=== PATIENT | female | born 1970 | race African-American/Black ===

== ENCOUNTER 2018-12-17 20:03 | Inpatient (IN) | payer OTHER ==
[~2018-12-17] VITALS: Ht 165.1 cm; Wt 77.1 kg
[2018-12-17 20:27] LABS: BASO % 0 % (0-3); EOS # 0.1 x10^3/uL (0.0-0.7); EOS % 2 % (0-3); HEMATOCRIT 45.7 % (36.0-47.0); HEMOGLOBIN 14.9 g/dL (12.0-15.5); LYMPH % 18 % (24-48); MEAN CORPUSCULAR HEMOGLOBIN 27 pg (25-35); MEAN CORPUSCULAR HGB CONC 33 g/dL (31-37); MEAN CORPUSCULAR VOLUME 84 fL (79-100); MONO # 0.4 x10^3/uL (0.0-1.1); MONO % 7 % (0-9); NEUT # 3.8 x10^3uL (1.8-7.7); NEUT % 72 % (31-73); PLATELET COUNT 260 x10^3/uL (140-400); RED BLOOD COUNT 5.43 x10^6/uL (3.50-5.40); RED CELL DISTRIBUTION WIDTH 14.8 % (11.5-14.5); WHITE BLOOD COUNT 5.3 x10^3/uL (4.0-11.0)
[2018-12-17] MEDS ORDERED: methylPREDNISolone SOD SUCC PF 125 MG/2 ML VIAL. IV ONE (20:30)
[2018-12-17] MEDS ORDERED: IV NORMAL SALINE 1000ML BAG 1,000 ML IV ONE (20:30)
--- NOTE | 2018-12-17 20:30 | PHYS DOC ---
Past Medical History Past Medical History: Asthma Past Surgical History: Hysterectomy Alcohol Use: Occasionally Drug Use: None Adult General Chief Complaint Chief Complaint: DYSPNEA/RESPIRATOY DISTRESS HPI HPI Patient is a 48 year old -Spanish female with history of asthma who presents with acute asthma exacerbation. Is began earlier today. Patient reports difficulty breathing, wheezing despite breathing treatments at home. On EMS arrival, patient's tachypnea, with audible wheezes, but able to speak in full sentences. O2 saturation was 96% on room air. To hand-held breathing treatments given at scene and patient placed on CPAP mass. Patient with diminished breath sounds with inspiratory and expiratory wheezes on ED arrival. Reports nasal congestion, and nonproductive cough. Reports subjective fever and chills. Patient states she has had recent stomach flu the past 2-3 days and has had vomiting and diarrhea and not much sleep. Denies chest pain. No other acute symptoms or complaints. Patient has had past asthma exacerbations requiring intubation. [] Review of Systems Review of Systems ROS as per HPI All other systems were reviewed and found to be within normal limits, except as documented in this note. Allergies Allergies Allergies Coded Allergies Type Severity Reaction Last Updated Verified No Known Drug Allergies 02/12/14 No Physical Exam Physical Exam Constitutional: Well developed, well nourished, mild respiratory distress. [] HENT: Normocephalic, atraumatic, bilateral external ears normal, oropharynx moist, nose normal. [] Eyes: PERRLA, EOMI, conjunctiva normal, no discharge. [] Neck: Normal range of motion, no tenderness, supple, no stridor. [] Cardiovascular: Tachycardic.[] Lungs & Thorax: Respirations labored, tachypnea, respiratory rate upper 20s, inspiratory and expiratory wheezes, diminished breath sounds bilaterally. Speaks in complete sentences. [] Abdomen: Bowel sounds normal, soft, no tenderness. [] Skin: Warm, dry, no erythema, no rash. [] Back: No tenderness. [] Extremities: No tenderness, no cyanosis. [] Neurologic: Alert and oriented X 3, normal motor function, normal sensory function, no focal deficits noted. [] Psychologic: Affect normal, judgement normal, mood normal. [] EKG EKG [] Radiology/Procedures Radiology/Procedures [Chest x-ray: No acute cardiopulmonary disease per radiology report.] Course & Med Decision Making Course & Med Decision Making Pertinent Labs and Imaging studies reviewed. (See chart for details) [Breathing treatment, steroids given. Will defer asthma exacerbation.] Dragon Disclaimer Dragon Disclaimer This electronic medical record was generated, in whole or in part, using a voice recognition dictation system. Departure Departure Impression: Primary Impression: Acute asthma exacerbation Disposition: ADMITTED INPATIENT Admitting Physician: Haleigh Pate Condition: DINH BACON DO Dec 17, 2018 20:30
[2018-12-17 20:33] LABS: BASE EXCESS ABG -1 mmol/L (-3-3); HCO3 ABG 24 mmol/L (21-28); PCO2 ABG 42 mmHg (35-46); PO2 ABG 87 mmHg (75-108); SAT O2 ABG 96 % (92-99)
[2018-12-17 20:35] LABS: CALCIUM 8.6 mg/dL (8.5-10.1); GFR 72.2; POTASSIUM 3.1 mmol/L (3.5-5.1)
[2018-12-17 20:41] LABS: ALBUMIN 3.3 g/dL (3.4-5.0); ALBUMIN/GLOBULIN RATIO 0.7 (1.0-1.7); TOTAL BILIRUBIN 0.2 mg/dL (0.2-1.0); TOTAL PROTEIN 8.1 g/dL (6.4-8.2)
[2018-12-17 20:42] LABS: PREG TEST PT QUAL NEGATIVE (NEG)
[2018-12-17 20:45] VITALS: BP 127/81
[2018-12-17 20:46] LABS: FIO2 ABG 24
[2018-12-17] MEDS ORDERED: ALBUTEROL SULFATE 2.5 MG/3 ML NEBU. NEB PRN (21:00)
[2018-12-17] MEDS ORDERED: ONDANSETRON PF 4 MG/2 ML VIAL. IV PRN (21:00)
--- NOTE | 2018-12-17 21:36 | RAD ---
CHEST AP ONLY History: Shortness of air Comparison: February 12, 2014 Findings: Single view of the chest is submitted. There is no lobar consolidation, pleural fluid, pneumothorax. Heart size is stable, within normal limits. Impression: 1. There is no radiographic evidence of acute cardiopulmonary disease. Electronically signed by: Mike Fitzgerald MD (12/17/2018 9:33 PM) [facility]
--- NOTE | 2018-12-17 22:12 | HP ---
ADMIT DATE: 12/17/2018 CHIEF COMPLAINT: Wheezing. HISTORY OF PRESENT ILLNESS: The patient is a pleasant, relatively healthy -[place] female, who presented to the ER with wheezing. She states she has had asthma off and on for years. She states her left lung seems to wheeze more than the right, describes as agonizing. She tried to take some home meds, but that did not work. Worse with moving, better with sitting still. I discussed the case with ER physician. We are going to admit the patient, give her IV steroids, breathing treatments and consult Pulmonary. PAST MEDICAL HISTORY: Asthma. ALLERGIES: None. FAMILY HISTORY: Asthma. 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 She does not drink, smoke or take drugs. She moved here from [place] 12 years ago. MEDICATIONS: Reviewed. Please refer to the MRAD. REVIEW OF SYSTEMS: GENERAL: No history of weight change, weakness or fevers. SKIN: No bruising, hair changes or rashes. EYES: No blurred, double or loss of vision. NOSE AND THROAT: No history of nosebleeds, hoarseness or sore throat. HEART: No history of palpitations, chest pain or shortness of breath on exertion. LUNGS: She complains of shortness of breath and wheezing. GASTROINTESTINAL: Denies changes in appetite, nausea, vomiting, diarrhea or constipation. GENITOURINARY: No history of frequency, urgency, hesitancy or nocturia. NEUROLOGIC: Denies history of numbness, tingling, tremor or weakness. PSYCHIATRIC: No history of panic, anxiety or depression. ENDOCRINE: No history of heat or cold intolerance, polyuria or polydipsia. EXTREMITIES: Denies muscle weakness, joint pain, pain on walking or stiffness. PHYSICAL EXAMINATION: VITAL SIGNS: Temperature afebrile, pulse 98, respirations 18, blood pressure 132/91. GENERAL: She is alert, cooperative, weak, complaining of wheezing. HEART: Normal S1, S2. LUNGS: Diffuse wheezing. ABDOMEN: Soft. EXTREMITIES: Trace edema. SKIN: No rash. ENDOCRINE: No thyromegaly. LYMPHATICS: No cervical nodes. HEMATOPOIETIC: No bruising. PSYCHIATRIC: She is depressed. LABORATORY DATA: Pending. ASSESSMENT AND PLAN: Asthma exacerbation. The patient has been admitted. We will consult Pulmonary. IV steroids, DuoNeb, oxygen, home meds, DVT prophylaxis. Full code. MARY ELLEN MCKENNA DO DR: Zackery JOB#: [id number] / [id number]
[2018-12-18] MEDS: IV NORMAL SALINE 1000ML BAG 1,000 ML IV SCH ×3 (00:10→12:42)
[2018-12-18] MEDS: methylPREDNISolone SOD SUCC PF 125 MG/2 ML VIAL. IV SCH ×2 (00:12→06:10)
[2018-12-18 03:35] VITALS: BP 121/69
[2018-12-18 04:42] LABS: BASO % 0 % (0-3); EOS % 0 % (0-3); HEMOGLOBIN 14.6 g/dL (12.0-15.5); LYMPH # 0.5 x10^3/uL (1.0-4.8); LYMPH % 14 % (24-48); MEAN CORPUSCULAR HEMOGLOBIN 27 pg (25-35); MEAN CORPUSCULAR HGB CONC 32 g/dL (31-37); MEAN CORPUSCULAR VOLUME 85 fL (79-100); MONO # 0.1 x10^3/uL (0.0-1.1); MONO % 2 % (0-9); NEUT # 2.8 x10^3uL (1.8-7.7); NEUT % 85 % (31-73); PLATELET COUNT 272 x10^3/uL (140-400); RED BLOOD COUNT 5.32 x10^6/uL (3.50-5.40); RED CELL DISTRIBUTION WIDTH 14.8 % (11.5-14.5); WHITE BLOOD COUNT 3.3 x10^3/uL (4.0-11.0)
[2018-12-18 05:07] LABS: ALBUMIN 3.1 g/dL (3.4-5.0); ALBUMIN/GLOBULIN RATIO 0.6 (1.0-1.7); CALCIUM 8.9 mg/dL (8.5-10.1); CREATININE 0.9 mg/dL (0.6-1.0); GFR 81.6; POTASSIUM 3.6 mmol/L (3.5-5.1); TOTAL BILIRUBIN 0.2 mg/dL (0.2-1.0); TOTAL PROTEIN 7.9 g/dL (6.4-8.2)
[2018-12-18 07:00] VITALS: BP 147/84
[2018-12-18] MEDS: IPRATRPIUM/ALBUTEROL 0.5/2.5MG 3 ML NEBU. NEB SCH ×3 (07:18→15:16)
[2018-12-18 11:30] VITALS: BP 125/81
[2018-12-18] MEDS ORDERED: IV NORMAL SALINE 1000ML BAG 1,000 ML IV ONE (12:00)
[2018-12-18] MEDS ORDERED: ACETAMINOPHEN 325 MG TABLET. PO PRN (12:00)
[2018-12-18] MEDS ORDERED: POTASSIUM CHLORIDE 20 MEQ TABLET.ER. PO ONE (12:30)
[2018-12-18] MEDS ORDERED: MONTELUKAST SODIUM 10 MG TABLET. PO SCH ×2 (12:30→21:00)
[2018-12-18 15:05] VITALS: BP 146/78
[2018-12-18] MEDS ORDERED: MONT10TA9 PO (15:52)
[2018-12-18] MEDS ORDERED: ALBU2.5V8 NEB (15:53)
[2018-12-18] MEDS ORDERED: BUDE10.22 IH (15:55)
--- NOTE | 2018-12-18 15:55 | PDOC3 ---
Discharge Summary Visit Information Date of Admission: Dec 17, 2018 Date of Discharge: Dec 18, 2018 Admitting Diagnosis: cough, dyspnea, Final Diagnosis acute bronchitis asthma headache Problems Medical Problems: (1) Acute asthma exacerbation Status: Acute Brief Hospital Course Allergies Allergies Coded Allergies Type Severity Reaction Last Updated Verified No Known Drug Allergies 02/12/14 No Vital Signs Vital Signs Date Time Temp Pulse Resp B/P (MAP) Pulse Ox O2 Delivery O2 Flow Rate FiO2 12/18/18 15:18 Room Air 12/18/18 11:30 98.5 73 18 125/81 (96) 95 98.5 12/17/18 21:40 2.0 Lab Results Laboratory Tests Test 12/17/18 20:09 12/17/18 20:18 12/18/18 03:15 O2 Saturation 96 % (92-99) Arterial Blood pH 7.37 (7.35-7.45) Arterial Blood pCO2 at Patient Temp 42 mmHg (35-46) Arterial Blood pO2 at Patient Temp 87 mmHg (75-108) Arterial Blood HCO3 24 mmol/L (21-28) Arterial Blood Base Excess -1 mmol/L (-3-3) FiO2 24 White Blood Count 5.3 x10^3/uL (4.0-11.0) 3.3 x10^3/uL (4.0-11.0) Red Blood Count 5.43 x10^6/uL (3.50-5.40) 5.32 x10^6/uL (3.50-5.40) Hemoglobin 14.9 g/dL (12.0-15.5) 14.6 g/dL (12.0-15.5) Hematocrit 45.7 % (36.0-47.0) 45.0 % (36.0-47.0) Mean Corpuscular Volume 84 fL (79-100) 85 fL (79-100) Mean Corpuscular Hemoglobin 27 pg (25-35) 27 pg (25-35) Mean Corpuscular Hemoglobin Concent 33 g/dL (31-37) 32 g/dL (31-37) Red Cell Distribution Width 14.8 % (11.5-14.5) 14.8 % (11.5-14.5) Platelet Count 260 x10^3/uL (140-400) 272 x10^3/uL (140-400) Neutrophils (%) (Auto) 72 % (31-73) 85 % (31-73) Lymphocytes (%) (Auto) 18 % (24-48) 14 % (24-48) Monocytes (%) (Auto) 7 % (0-9) 2 % (0-9) Eosinophils (%) (Auto) 2 % (0-3) 0 % (0-3) Basophils (%) (Auto) 0 % (0-3) 0 % (0-3) Neutrophils # (Auto) 3.8 x10^3uL (1.8-7.7) 2.8 x10^3uL (1.8-7.7) Lymphocytes # (Auto) 1.0 x10^3/uL (1.0-4.8) 0.5 x10^3/uL (1.0-4.8) Monocytes # (Auto) 0.4 x10^3/uL (0.0-1.1) 0.1 x10^3/uL (0.0-1.1) Eosinophils # (Auto) 0.1 x10^3/uL (0.0-0.7) 0.0 x10^3/uL (0.0-0.7) Basophils # (Auto) 0.0 x10^3/uL (0.0-0.2) 0.0 x10^3/uL (0.0-0.2) Sodium Level 139 mmol/L (136-145) 144 mmol/L (136-145) Potassium Level 3.1 mmol/L (3.5-5.1) 3.6 mmol/L (3.5-5.1) Chloride Level 103 mmol/L (98-107) 107 mmol/L (98-107) Carbon Dioxide Level 26 mmol/L (21-32) 24 mmol/L (21-32) Anion Gap 10 (6-14) 13 (6-14) Blood Urea Nitrogen 8 mg/dL (7-20) 7 mg/dL (7-20) Creatinine 1.0 mg/dL (0.6-1.0) 0.9 mg/dL (0.6-1.0) Estimated GFR (Cockcroft-Gault) 72.2 81.6 BUN/Creatinine Ratio 8 (6-20) 8 (6-20) Glucose Level 109 mg/dL (70-99) 169 mg/dL (70-99) Calcium Level 8.6 mg/dL (8.5-10.1) 8.9 mg/dL (8.5-10.1) Total Bilirubin 0.2 mg/dL (0.2-1.0) 0.2 mg/dL (0.2-1.0) Aspartate Amino Transf (AST/SGOT) 23 U/L (15-37) 20 U/L (15-37) Alanine Aminotransferase (ALT/SGPT) 12 U/L (14-59) 13 U/L (14-59) Alkaline Phosphatase 88 U/L (46-116) 86 U/L (46-116) Total Protein 8.1 g/dL (6.4-8.2) 7.9 g/dL (6.4-8.2) Albumin 3.3 g/dL (3.4-5.0) 3.1 g/dL (3.4-5.0) Albumin/Globulin Ratio 0.7 (1.0-1.7) 0.6 (1.0-1.7) Serum Test, Qualitative Negative (NEG) Laboratory Tests Test 12/17/18 20:09 12/17/18 20:18 12/18/18 03:15 O2 Saturation 96 % (92-99) Arterial Blood pH 7.37 (7.35-7.45) Arterial Blood pCO2 at Patient Temp 42 mmHg (35-46) Arterial Blood pO2 at Patient Temp 87 mmHg (75-108) Arterial Blood HCO3 24 mmol/L (21-28) Arterial Blood Base Excess -1 mmol/L (-3-3) FiO2 24 White Blood Count 5.3 x10^3/uL (4.0-11.0) 3.3 x10^3/uL (4.0-11.0) Red Blood Count 5.43 x10^6/uL (3.50-5.40) 5.32 x10^6/uL (3.50-5.40) Hemoglobin 14.9 g/dL (12.0-15.5) 14.6 g/dL (12.0-15.5) Hematocrit 45.7 % (36.0-47.0) 45.0 % (36.0-47.0) Mean Corpuscular Volume 84 fL (79-100) 85 fL (79-100) Mean Corpuscular Hemoglobin 27 pg (25-35) 27 pg (25-35) Mean Corpuscular Hemoglobin Concent 33 g/dL (31-37) 32 g/dL (31-37) Red Cell Distribution Width 14.8 % (11.5-14.5) 14.8 % (11.5-14.5) Platelet Count 260 x10^3/uL (140-400) 272 x10^3/uL (140-400) Neutrophils (%) (Auto) 72 % (31-73) 85 % (31-73) Lymphocytes (%) (Auto) 18 % (24-48) 14 % (24-48) Monocytes (%) (Auto) 7 % (0-9) 2 % (0-9) Eosinophils (%) (Auto) 2 % (0-3) 0 % (0-3) Basophils (%) (Auto) 0 % (0-3) 0 % (0-3) Neutrophils # (Auto) 3.8 x10^3uL (1.8-7.7) 2.8 x10^3uL (1.8-7.7) Lymphocytes # (Auto) 1.0 x10^3/uL (1.0-4.8) 0.5 x10^3/uL (1.0-4.8) Monocytes # (Auto) 0.4 x10^3/uL (0.0-1.1) 0.1 x10^3/uL (0.0-1.1) Eosinophils # (Auto) 0.1 x10^3/uL (0.0-0.7) 0.0 x10^3/uL (0.0-0.7) Basophils # (Auto) 0.0 x10^3/uL (0.0-0.2) 0.0 x10^3/uL (0.0-0.2) Sodium Level 139 mmol/L (136-145) 144 mmol/L (136-145) Potassium Level 3.1 mmol/L (3.5-5.1) 3.6 mmol/L (3.5-5.1) Chloride Level 103 mmol/L (98-107) 107 mmol/L (98-107) Carbon Dioxide Level 26 mmol/L (21-32) 24 mmol/L (21-32) Anion Gap 10 (6-14) 13 (6-14) Blood Urea Nitrogen 8 mg/dL (7-20) 7 mg/dL (7-20) Creatinine 1.0 mg/dL (0.6-1.0) 0.9 mg/dL (0.6-1.0) Estimated GFR (Cockcroft-Gault) 72.2 81.6 BUN/Creatinine Ratio 8 (6-20) 8 (6-20) Glucose Level 109 mg/dL (70-99) 169 mg/dL (70-99) Calcium Level 8.6 mg/dL (8.5-10.1) 8.9 mg/dL (8.5-10.1) Total Bilirubin 0.2 mg/dL (0.2-1.0) 0.2 mg/dL (0.2-1.0) Aspartate Amino Transf (AST/SGOT) 23 U/L (15-37) 20 U/L (15-37) Alanine Aminotransferase (ALT/SGPT) 12 U/L (14-59) 13 U/L (14-59) Alkaline Phosphatase 88 U/L (46-116) 86 U/L (46-116) Total Protein 8.1 g/dL (6.4-8.2) 7.9 g/dL (6.4-8.2) Albumin 3.3 g/dL (3.4-5.0) 3.1 g/dL (3.4-5.0) Albumin/Globulin Ratio 0.7 (1.0-1.7) 0.6 (1.0-1.7) Serum Test, Qualitative Negative (NEG) Brief Hospital Course Ms. Amaro is a 48 old with history of asthma admit with acute asthma exacerbation. Is began earlier today. tachypnea, with audible wheezes, but able to speak in full sentences. recent illness in the family, she had recently felt ill Discharge Information Condition at Discharge: Improved Follow Up: Weeks Disposition/Orders: D/C to Home Scheduled Info (No Known Medications Prior To Admisstion) Each, 1 EACH [facility] for ., (Reported) Entered as Reported by: NOELLE HARRIS on 4/28424 Last Action: New Order on 12/18/18424 by NOELLE HARRIS Scheduled PRN Albuterol Sulfate (Proair Hfa) 8.5 Gm Hfa.aer.ad, 5 MG NEB PRN Q4HRS PRN for SHORTNESS OF BREATH, #1 Prescribed by: KIERSTEN CAMPA on 12/18/18 1553 Montelukast Sodium (Montelukast Sodium Tablet) 10 Mg Tablet, 10 MG PO QHS PRN for ALLERGIES, #30 Prescribed by: KIERSTEN CAMPA on 12/18/18 1552 Patient Instructions Patient Instructions > 30 min face to face KIERSTEN CAMPA MD Dec 18, 2018 15:55
--- NOTE | 2018-12-18 16:37 | PDOC ---
PULMONARY PROGRESS NOTES Vitals Vital Signs Date Time Temp Pulse Resp B/P (MAP) Pulse Ox O2 Delivery O2 Flow Rate FiO2 12/18/18 15:18 Room Air 12/18/18 15:05 98.6 75 18 146/78 (100) 94 98.6 12/17/18 21:40 2.0 Labs Laboratory Tests Test 12/17/18 20:09 12/17/18 20:18 12/18/18 03:15 O2 Saturation 96 % (92-99) Arterial Blood pH 7.37 (7.35-7.45) Arterial Blood pCO2 at Patient Temp 42 mmHg (35-46) Arterial Blood pO2 at Patient Temp 87 mmHg (75-108) Arterial Blood HCO3 24 mmol/L (21-28) Arterial Blood Base Excess -1 mmol/L (-3-3) FiO2 24 White Blood Count 5.3 x10^3/uL (4.0-11.0) 3.3 x10^3/uL (4.0-11.0) Red Blood Count 5.43 x10^6/uL (3.50-5.40) 5.32 x10^6/uL (3.50-5.40) Hemoglobin 14.9 g/dL (12.0-15.5) 14.6 g/dL (12.0-15.5) Hematocrit 45.7 % (36.0-47.0) 45.0 % (36.0-47.0) Mean Corpuscular Volume 84 fL (79-100) 85 fL (79-100) Mean Corpuscular Hemoglobin 27 pg (25-35) 27 pg (25-35) Mean Corpuscular Hemoglobin Concent 33 g/dL (31-37) 32 g/dL (31-37) Red Cell Distribution Width 14.8 % (11.5-14.5) 14.8 % (11.5-14.5) Platelet Count 260 x10^3/uL (140-400) 272 x10^3/uL (140-400) Neutrophils (%) (Auto) 72 % (31-73) 85 % (31-73) Lymphocytes (%) (Auto) 18 % (24-48) 14 % (24-48) Monocytes (%) (Auto) 7 % (0-9) 2 % (0-9) Eosinophils (%) (Auto) 2 % (0-3) 0 % (0-3) Basophils (%) (Auto) 0 % (0-3) 0 % (0-3) Neutrophils # (Auto) 3.8 x10^3uL (1.8-7.7) 2.8 x10^3uL (1.8-7.7) Lymphocytes # (Auto) 1.0 x10^3/uL (1.0-4.8) 0.5 x10^3/uL (1.0-4.8) Monocytes # (Auto) 0.4 x10^3/uL (0.0-1.1) 0.1 x10^3/uL (0.0-1.1) Eosinophils # (Auto) 0.1 x10^3/uL (0.0-0.7) 0.0 x10^3/uL (0.0-0.7) Basophils # (Auto) 0.0 x10^3/uL (0.0-0.2) 0.0 x10^3/uL (0.0-0.2) Sodium Level 139 mmol/L (136-145) 144 mmol/L (136-145) Potassium Level 3.1 mmol/L (3.5-5.1) 3.6 mmol/L (3.5-5.1) Chloride Level 103 mmol/L (98-107) 107 mmol/L (98-107) Carbon Dioxide Level 26 mmol/L (21-32) 24 mmol/L (21-32) Anion Gap 10 (6-14) 13 (6-14) Blood Urea Nitrogen 8 mg/dL (7-20) 7 mg/dL (7-20) Creatinine 1.0 mg/dL (0.6-1.0) 0.9 mg/dL (0.6-1.0) Estimated GFR (Cockcroft-Gault) 72.2 81.6 BUN/Creatinine Ratio 8 (6-20) 8 (6-20) Glucose Level 109 mg/dL (70-99) 169 mg/dL (70-99) Calcium Level 8.6 mg/dL (8.5-10.1) 8.9 mg/dL (8.5-10.1) Total Bilirubin 0.2 mg/dL (0.2-1.0) 0.2 mg/dL (0.2-1.0) Aspartate Amino Transf (AST/SGOT) 23 U/L (15-37) 20 U/L (15-37) Alanine Aminotransferase (ALT/SGPT) 12 U/L (14-59) 13 U/L (14-59) Alkaline Phosphatase 88 U/L (46-116) 86 U/L (46-116) Total Protein 8.1 g/dL (6.4-8.2) 7.9 g/dL (6.4-8.2) Albumin 3.3 g/dL (3.4-5.0) 3.1 g/dL (3.4-5.0) Albumin/Globulin Ratio 0.7 (1.0-1.7) 0.6 (1.0-1.7) Serum Test, Qualitative Negative (NEG) Laboratory Tests Test 12/17/18 20:09 12/17/18 20:18 12/18/18 03:15 O2 Saturation 96 % (92-99) Arterial Blood pH 7.37 (7.35-7.45) Arterial Blood pCO2 at Patient Temp 42 mmHg (35-46) Arterial Blood pO2 at Patient Temp 87 mmHg (75-108) Arterial Blood HCO3 24 mmol/L (21-28) Arterial Blood Base Excess -1 mmol/L (-3-3) FiO2 24 White Blood Count 5.3 x10^3/uL (4.0-11.0) 3.3 x10^3/uL (4.0-11.0) Red Blood Count 5.43 x10^6/uL (3.50-5.40) 5.32 x10^6/uL (3.50-5.40) Hemoglobin 14.9 g/dL (12.0-15.5) 14.6 g/dL (12.0-15.5) Hematocrit 45.7 % (36.0-47.0) 45.0 % (36.0-47.0) Mean Corpuscular Volume 84 fL (79-100) 85 fL (79-100) Mean Corpuscular Hemoglobin 27 pg (25-35) 27 pg (25-35) Mean Corpuscular Hemoglobin Concent 33 g/dL (31-37) 32 g/dL (31-37) Red Cell Distribution Width 14.8 % (11.5-14.5) 14.8 % (11.5-14.5) Platelet Count 260 x10^3/uL (140-400) 272 x10^3/uL (140-400) Neutrophils (%) (Auto) 72 % (31-73) 85 % (31-73) Lymphocytes (%) (Auto) 18 % (24-48) 14 % (24-48) Monocytes (%) (Auto) 7 % (0-9) 2 % (0-9) Eosinophils (%) (Auto) 2 % (0-3) 0 % (0-3) Basophils (%) (Auto) 0 % (0-3) 0 % (0-3) Neutrophils # (Auto) 3.8 x10^3uL (1.8-7.7) 2.8 x10^3uL (1.8-7.7) Lymphocytes # (Auto) 1.0 x10^3/uL (1.0-4.8) 0.5 x10^3/uL (1.0-4.8) Monocytes # (Auto) 0.4 x10^3/uL (0.0-1.1) 0.1 x10^3/uL (0.0-1.1) Eosinophils # (Auto) 0.1 x10^3/uL (0.0-0.7) 0.0 x10^3/uL (0.0-0.7) Basophils # (Auto) 0.0 x10^3/uL (0.0-0.2) 0.0 x10^3/uL (0.0-0.2) Sodium Level 139 mmol/L (136-145) 144 mmol/L (136-145) Potassium Level 3.1 mmol/L (3.5-5.1) 3.6 mmol/L (3.5-5.1) Chloride Level 103 mmol/L (98-107) 107 mmol/L (98-107) Carbon Dioxide Level 26 mmol/L (21-32) 24 mmol/L (21-32) Anion Gap 10 (6-14) 13 (6-14) Blood Urea Nitrogen 8 mg/dL (7-20) 7 mg/dL (7-20) Creatinine 1.0 mg/dL (0.6-1.0) 0.9 mg/dL (0.6-1.0) Estimated GFR (Cockcroft-Gault) 72.2 81.6 BUN/Creatinine Ratio 8 (6-20) 8 (6-20) Glucose Level 109 mg/dL (70-99) 169 mg/dL (70-99) Calcium Level 8.6 mg/dL (8.5-10.1) 8.9 mg/dL (8.5-10.1) Total Bilirubin 0.2 mg/dL (0.2-1.0) 0.2 mg/dL (0.2-1.0) Aspartate Amino Transf (AST/SGOT) 23 U/L (15-37) 20 U/L (15-37) Alanine Aminotransferase (ALT/SGPT) 12 U/L (14-59) 13 U/L (14-59) Alkaline Phosphatase 88 U/L (46-116) 86 U/L (46-116) Total Protein 8.1 g/dL (6.4-8.2) 7.9 g/dL (6.4-8.2) Albumin 3.3 g/dL (3.4-5.0) 3.1 g/dL (3.4-5.0) Albumin/Globulin Ratio 0.7 (1.0-1.7) 0.6 (1.0-1.7) Serum Test, Qualitative Negative (NEG) Medications Active Scripts Medications Dose Route/Sig Max Daily Dose Days Date Category Symbicort 80-4.5 Mcg Inhaler (Budesonide/Formoterol Fumarate) 10.2 Gm Hfa.aer.ad 1 Puff IH BID 12/18/18 Rx Proair Hfa (Albuterol Sulfate) 8.5 Gm Hfa.aer.ad 5 Mg NEB PRN Q4HRS PRN 12/18/18 Rx Montelukast Sodium Tablet (Montelukast Sodium) 10 Mg Tablet 10 Mg PO QHS PRN 12/18/18 Rx No Known Medications Prior To Admisstion (Info) Each 1 Each 1X 12/18/18 Reported Impression . DICTATED D/W YAHAIRA STEINER MD Dec 18, 2018 16:37
--- NOTE | 2018-12-18 16:46 | NUR ---
Discharge Note: PHYLLIS HUGHES[address] [place] [address] Discharge instructions and discharge home medications reviewed with Patient and a copy given. All questions have been answered and understanding verbalized. The following instructions and handouts were given: Patient given education regarding montelukast, flovent, prednisone, and proair inhailer. Discontinued lines and drains: Iv removed per protocol. Patient discharged home, wheeled out accompanied by family members.
--- NOTE | 2018-12-19 07:34 | EKG ---
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 Electronically Signed On 12-21-2018 17:31:38 CDT by Govind Farmer
--- NOTE | 2018-12-19 12:19 | CONS ---
DATE OF CONSULTATION: 12/18/2018 ATTENDING PHYSICIAN: Dr. Pate. REASON FOR CONSULTATION: The patient seen in pulmonary consultation at the request of Dr. Pate for asthma. HISTORY OF PRESENT ILLNESS: The patient is a 48-year-old that had asthma since 2004, had previous allergy testing. Never underwent immunotherapy, normally utilizes albuterol on a p.r.n. basis when she is doing well, approximately 3-4 times per week. She presented with increasing shortness of breath, mostly related to secondhand smoke, allergies and weather change. In the past, she had been on Singulair, Symbicort and QVAR. She is currently just on albuterol. She has never been intubated. Denies fever, chills, nausea, vomiting. PAST MEDICAL HISTORY: Asthma as indicated above. PAST SURGICAL HISTORY: Status post hysterectomy. ALLERGIES: Multiple allergens, mostly seasonal allergies. MEDICATIONS: List was reviewed. FAMILY HISTORY: Mother with asthma. She also smoked. PHYSICAL EXAMINATION: VITAL SIGNS: Stable. O2 saturation was greater than 92%. LUNGS: Clear. No wheezes. CARDIOVASCULAR: Regular rate and rhythm with S1, S2, no S3. ABDOMEN: Soft, nontender, nondistended. EXTREMITIES: No clubbing, cyanosis or edema. IMPRESSION: 1. Acute exacerbation of asthma. 2. Seasonal allergies. 3. Multiple other allergies. The patient previously had allergy testing, no immunotherapy. PLAN: 1. Recommend maintenance medication with Flovent 220 two puffs twice daily. 2. Singulair 10 mg daily. 3. P.r.n. albuterol. 4. Follow up in my office in 4-6 weeks. 5. Discharge on prednisone. I do appreciate the privilege in sharing in the patient's care. YAHAIRA DANG MD DR: WALE/emily JOB#: [id number] / [id number]
== END 2018-12-18 16:40 | disposition home or self-care (01) | DRG 202 ==
LOC: ER 20:03 → 6 SOUTH 20:04
PROVIDERS: ADMIT Internal Medicine; ATTEND Internal Medicine
DX: J20.9 Acute bronchitis, unspecified (principal); J45.901 Unspecified asthma with (acute) exacerbation; Z82.5 Family history of asthma and other chronic lower respiratory diseases; Z90.710 Acquired absence of both cervix and uterus; Z79.899 Other long term (current) drug therapy
CPT/HCPCS: 36415; 36600; 71045; 80053; 82805; 84703; 85025; 93005; 94640; 96374; J2930; J7030; J7620; 99285-25

== ENCOUNTER 2018-12-19 12:18 | Emergency (ER) | payer OTHER ==
[~2018-12-19] VITALS: Ht 157.5 cm; Wt 103.4 kg
[~2018-12-19 12:18] MED LIST: ALBU2.5V8 NEB; BUDE10.22 IH; MONT10TA9 PO
[2018-12-19] MEDS ORDERED: IV NORMAL SALINE 1000ML BAG 1,000 ML IV SCH (13:20)
[2018-12-19 13:30] LABS: BILIRUBIN,URINE NEGATIVE (NEG); CLARITY,URINE CLEAR; COLOR,URINE YELLOW; NITRITE,URINE NEGATIVE (NEG); PH,URINE 5.5; PROTEIN,URINE NEGATIVE (NEG-TRACE); UROBILINOGEN,URINE 0.2 mg/dL (0.2 mg/dL)
[2018-12-19 13:51] LABS: SQUAMOUS EPITHELIAL CELL,UR FEW /LPF
[2018-12-19 13:52] LABS: BACTERIA,URINE 0 /HPF (0-FEW); RBC,URINE 0 /HPF (0-2); WBC,URINE OCC /HPF (0-4)
[2018-12-19 13:57] LABS: BASO % 0 % (0-3); EOS % 0 % (0-3); HEMATOCRIT 42.1 % (36.0-47.0); HEMOGLOBIN 13.4 g/dL (12.0-15.5); LYMPH # 2.4 x10^3/uL (1.0-4.8); LYMPH % 46 % (24-48); MEAN CORPUSCULAR HEMOGLOBIN 27 pg (25-35); MEAN CORPUSCULAR HGB CONC 32 g/dL (31-37); MEAN CORPUSCULAR VOLUME 85 fL (79-100); MONO # 0.7 x10^3/uL (0.0-1.1); MONO % 13 % (0-9); NEUT # 2.1 x10^3uL (1.8-7.7); NEUT % 41 % (31-73); PLATELET COUNT 246 x10^3/uL (140-400); RED BLOOD COUNT 4.98 x10^6/uL (3.50-5.40); WHITE BLOOD COUNT 5.2 x10^3/uL (4.0-11.0)
--- NOTE | 2018-12-19 14:01 | PHYS DOC ---
Past Medical History Past Medical History: Asthma, Pancreatitis (PAMELA AZAR APRN) Past Surgical History: , Hysterectomy (PAMELA AZAR APRN) Alcohol Use: Occasionally Drug Use: None (PAMELA AZAR APRN) Adult General Chief Complaint Chief Complaint: ABDOMINAL PAIN HPI HPI Patient is a 48 year old female presents for evaluation of diffuse abd pain and "gurgling" since Wednesday last week. She was seen in this ED on Wednesday for asthma exacerbation, states was admitted and discharged yesterday. She states her abd pain complaints were not addressed during admission so she has returned to ED today. She reports diarrhea. She has taken a bottle of Pepto-Bismol and n ow her stools are dark colored. She denies vomiting. States she feels generally weak. Her family member recently had "GI infection and I think he gave it to me". She has not yet filled her prescriptions given to her at discharge yesterday for her asthma. (PAMELA AZAR APRN) Review of Systems Review of Systems Constitutional: Denies fever or chills [] Eyes: Denies change in visual acuity, redness, or eye pain [] HENT: Denies nasal congestion or sore throat [] Respiratory: Denies cough or shortness of breath [] Cardiovascular: No additional information not addressed in HPI [] GI: reports abd pain-diffuse, increased gurgling sounds, dark stools [] : Denies dysuria or hematuria [] Musculoskeletal: Denies back pain or joint pain [] Integument: Denies rash or skin lesions [] Neurologic: Denies headache, focal weakness or sensory changes [] Endocrine: Denies polyuria or polydipsia [] All other systems were reviewed and found to be within normal limits, except as documented in this note. (PAMELA AZAR APRN) Current Medications Current Medications Current Medications Medications (Trade) Dose Ordered Sig/Racheal Start Time Stop Time Status Last Admin Dose Admin Morphine Sulfate (Morphine Sulfate) 4 mg 1X ONCE 12/19/18 14:45 12/19/18 14:49 DC Ondansetron HCl (Zofran) 4 mg 1X ONCE 12/19/18 14:45 12/19/18 14:49 DC 12/19/18 15:03 4 MG Sodium Chloride 1,000 ml @ 1,000 mls/hr Q1H 12/19/18 13:20 12/19/18 14:19 DC 12/19/18 14:10 1,000 MLS/HR (REX ROSA MD) Allergies Allergies Allergies Coded Allergies Type Severity Reaction Last Updated Verified No Known Drug Allergies 02/12/14 No (REX ROSA MD) Physical Exam Physical Exam Constitutional: Well developed, well nourished, no acute distress, non-toxic appearance. [] Neck: Normal range of motion, no tenderness, supple, no stridor. [] Cardiovascular:Heart rate regular rhythm, no murmur [] Lungs & Thorax: Bilateral breath sounds clear to auscultation [] Abdomen: Bowel sounds normal, soft, DIFFUSE tenderness, no masses, no pulsatile masses. [] Skin: Warm, dry, no erythema, no rash. [] Back: No tenderness, no CVA tenderness. [] Neurologic: Alert and oriented X 3, normal motor function, normal sensory function, no focal deficits noted. [] Psychologic: Affect normal, judgement normal, mood normal. [] (PAMELA AZAR APRN) Current Patient Data Vital Signs Vital Signs Date Time Temp Pulse Resp B/P (MAP) Pulse Ox O2 Delivery O2 Flow Rate FiO2 12/19/18 15:22 74 164/87 (112) 100 Room Air 12/19/18 13:00 98.7 16 98.7 (REX ROSA MD) Lab Values Laboratory Tests Test 12/19/18 12:55 12/19/18 13:02 12/19/18 13:50 12/19/18 14:13 Urine Collection Type Unknown Urine Color Yellow Urine Clarity Clear Urine pH 5.5 Urine Specific [place] 1.015 Urine Protein Negative mg/dL (NEG-TRACE) Urine Glucose (UA) Negative mg/dL (NEG) Urine Ketones (Stick) Negative mg/dL (NEG) Urine Blood Trace (NEG) Urine Nitrite Negative (NEG) Urine Bilirubin Negative (NEG) Urine Urobilinogen Dipstick 0.2 mg/dL (0.2 mg/dL) Urine Leukocyte Esterase Negative (NEG) Urine RBC 0 /HPF (0-2) Urine WBC Occ /HPF (0-4) Urine Squamous Epithelial Cells Few /LPF Urine Bacteria 0 /HPF (0-FEW) Urine Mucus Slight /LPF POC Urine HCG, Qualitative Hcg negative (Negative) White Blood Count 5.2 x10^3/uL (4.0-11.0) Red Blood Count 4.98 x10^6/uL (3.50-5.40) Hemoglobin 13.4 g/dL (12.0-15.5) Hematocrit 42.1 % (36.0-47.0) Mean Corpuscular Volume 85 fL (79-100) Mean Corpuscular Hemoglobin 27 pg (25-35) Mean Corpuscular Hemoglobin Concent 32 g/dL (31-37) Red Cell Distribution Width 15.0 % (11.5-14.5) H Platelet Count 246 x10^3/uL (140-400) Neutrophils (%) (Auto) 41 % (31-73) Lymphocytes (%) (Auto) 46 % (24-48) Monocytes (%) (Auto) 13 % (0-9) H Eosinophils (%) (Auto) 0 % (0-3) Basophils (%) (Auto) 0 % (0-3) Neutrophils # (Auto) 2.1 x10^3uL (1.8-7.7) Lymphocytes # (Auto) 2.4 x10^3/uL (1.0-4.8) Monocytes # (Auto) 0.7 x10^3/uL (0.0-1.1) Eosinophils # (Auto) 0.0 x10^3/uL (0.0-0.7) Basophils # (Auto) 0.0 x10^3/uL (0.0-0.2) Sodium Level 144 mmol/L (136-145) Potassium Level 3.3 mmol/L (3.5-5.1) L Chloride Level 109 mmol/L (98-107) H Carbon Dioxide Level 28 mmol/L (21-32) Anion Gap 7 (6-14) Blood Urea Nitrogen 11 mg/dL (7-20) Creatinine 0.8 mg/dL (0.6-1.0) Estimated GFR (Cockcroft-Gault) 93.4 BUN/Creatinine Ratio 14 (6-20) Glucose Level 92 mg/dL (70-99) Calcium Level 8.3 mg/dL (8.5-10.1) L Total Bilirubin 0.1 mg/dL (0.2-1.0) L Aspartate Amino Transferase (AST) 26 U/L (15-37) Alanine Aminotransferase (ALT) 22 U/L (14-59) Alkaline Phosphatase 66 U/L (46-116) Total Protein 6.9 g/dL (6.4-8.2) Albumin 2.8 g/dL (3.4-5.0) L Albumin/Globulin Ratio 0.7 (1.0-1.7) L Lipase 663 U/L (73-393) H Stool Occult Blood Negative (NEG) Laboratory Tests 12/19/18 13:50 Laboratory Tests 12/19/18 13:50 (REX ROSA MD) EKG EKG [] (PAMELA AZAR APRN) Radiology/Procedures Radiology/Procedures [] (PAMELA AZAR APRN) Course & Med Decision Making Course & Med Decision Making Pertinent Labs and Imaging studies reviewed. (See chart for details) [Vital signs stable, patient afebrile and nontoxic in appearance. She has a lipase of 663, tells me she is not an alcohol drinker other then occasional glass of wine on Wednesday or Wednesday night. She is not comfortable going home, tells me she is more concerned with the diarrhea. I discussed patient's case with Dr. Peña who recommends admission for first-time pancreatitis. I spoke with Dr. Day who accepts admission. [id number] I was notified by the patient's nurse that she is refusing pain medications stating only needing Tylenol. Morphine was not given. I went back in and reassessed the patient, spoke with her, discussed 48 hours of clear liquid diet, may take [id number] Imodium for the diarrhea and follow-up with her primary care doctor, since she is not requiring or wanting any IV pain medication. She agrees with this plan of care, understands instructions given, also understands she is welcome to return to the emergency room for any new or worsening symptoms. Dr. Day is notified of the above decision.] (PAMELA AZAR APRN) Course & Med Decision Making Staff Physician Addendum: I was working in the ER during the course of this patient's visit. I was available for consultation as needed, but I was not directly involved in the care of this patient. (REX ROSA MD) Dragon Disclaimer Dragon Disclaimer This electronic medical record was generated, in whole or in part, using a voice recognition dictation system. (PAMELA AZAR APRN) Departure Departure Impression: Primary Impression: Pancreatitis Disposition: 01 HOME, SELF-CARE Admitting Physician: Marcus Rich Other (PAMELA AZAR APRN) Condition: STABLE Referrals: NO PCP (PCP) Patient Instructions: Acute Pancreatitis Problem Qualifiers Primary Impression: Pancreatitis Chronicity: acute Pancreatitis type: other PAMELA AZAR APRN Dec 19, 2018 14:01 REX ROSA MD Dec 20, 2018 23:58
[2018-12-19 14:04] LABS: CALCIUM 8.3 mg/dL (8.5-10.1); CREATININE 0.8 mg/dL (0.6-1.0); GFR 93.4; POTASSIUM 3.3 mmol/L (3.5-5.1)
[2018-12-19 14:12] LABS: ALBUMIN 2.8 g/dL (3.4-5.0); ALBUMIN/GLOBULIN RATIO 0.7 (1.0-1.7); TOTAL BILIRUBIN 0.1 mg/dL (0.2-1.0); TOTAL PROTEIN 6.9 g/dL (6.4-8.2)
[2018-12-19 14:24] LABS: FECAL OB PT NEGATIVE (NEG)
[2018-12-19] MEDS ORDERED: MORPHINE SULFATE 4 MG/ML VIAL. IV ONE (14:45)
[2018-12-19] MEDS ORDERED: ONDANSETRON PF 4 MG/2 ML VIAL. IV ONE (14:45)
--- NOTE | 2018-12-19 14:52 | PDOC1 ---
History and Physical Date of Admission Date of Admission DATE: 12/19/18 TIME: 14:52 Identification/Chief Complaint Chief Complaint LEFT AMA, NOT ADMITTED Current Problem List Problem List Problems Medical Problems: (1) Pancreatitis Status: Acute Current Medications Current Medications Current Medications Sodium Chloride 1,000 ml @ 1,000 mls/hr Q1H IV Last administered on 12/19/18at 14:10; Start 12/19/18 at 13:20; Stop 12/19/18 at 14:19; Status DC Morphine Sulfate (Morphine Sulfate) 4 mg 1X ONCE IV ; Start 12/19/18 at 14:45; Stop 12/19/18 at 14:49; Status DC Ondansetron HCl (Zofran) 4 mg 1X ONCE IV ; Start 12/19/18 at 14:45; Stop 12/19/18 at 14:49; Status DC Active Scripts Active Symbicort 80-4.5 Mcg Inhaler (Budesonide/Formoterol Fumarate) 10.2 Gm Hfa.aer.ad 1 Puff IH BID Proair Hfa (Albuterol Sulfate) 8.5 Gm Hfa.aer.ad 5 Mg NEB PRN Q4HRS PRN Montelukast Sodium Tablet (Montelukast Sodium) 10 Mg Tablet 10 Mg PO QHS PRN Reported No Known Medications Prior To Admisstion (Info) Each 1 Each MC 1X Allergies Allergies: Coded Allergies: No Known Drug Allergies (Unverified , 02/12/14) Vitals Vitals Vital Signs Date Time Temp Pulse Resp B/P (MAP) Pulse Ox O2 Delivery O2 Flow Rate FiO2 12/19/18 13:00 98.7 80 16 155/99 (117) 99 Room Air 98.7 Labs Labs Laboratory Tests Test 12/19/18 12:55 12/19/18 13:50 12/19/18 14:13 Urine Collection Type Unknown Urine Color Yellow Urine Clarity Clear Urine pH 5.5 Urine Specific [place] 1.015 Urine Protein Negative mg/dL (NEG-TRACE) Urine Glucose (UA) Negative mg/dL (NEG) Urine Ketones (Stick) Negative mg/dL (NEG) Urine Blood Trace (NEG) Urine Nitrite Negative (NEG) Urine Bilirubin Negative (NEG) Urine Urobilinogen Dipstick 0.2 mg/dL (0.2 mg/dL) Urine Leukocyte Esterase Negative (NEG) Urine RBC 0 /HPF (0-2) Urine WBC Occ /HPF (0-4) Urine Squamous Epithelial Cells Few /LPF Urine Bacteria 0 /HPF (0-FEW) Urine Mucus Slight /LPF White Blood Count 5.2 x10^3/uL (4.0-11.0) Red Blood Count 4.98 x10^6/uL (3.50-5.40) Hemoglobin 13.4 g/dL (12.0-15.5) Hematocrit 42.1 % (36.0-47.0) Mean Corpuscular Volume 85 fL (79-100) Mean Corpuscular Hemoglobin 27 pg (25-35) Mean Corpuscular Hemoglobin Concent 32 g/dL (31-37) Red Cell Distribution Width 15.0 % (11.5-14.5) Platelet Count 246 x10^3/uL (140-400) Neutrophils (%) (Auto) 41 % (31-73) Lymphocytes (%) (Auto) 46 % (24-48) Monocytes (%) (Auto) 13 % (0-9) Eosinophils (%) (Auto) 0 % (0-3) Basophils (%) (Auto) 0 % (0-3) Neutrophils # (Auto) 2.1 x10^3uL (1.8-7.7) Lymphocytes # (Auto) 2.4 x10^3/uL (1.0-4.8) Monocytes # (Auto) 0.7 x10^3/uL (0.0-1.1) Eosinophils # (Auto) 0.0 x10^3/uL (0.0-0.7) Basophils # (Auto) 0.0 x10^3/uL (0.0-0.2) Sodium Level 144 mmol/L (136-145) Potassium Level 3.3 mmol/L (3.5-5.1) Chloride Level 109 mmol/L (98-107) Carbon Dioxide Level 28 mmol/L (21-32) Anion Gap 7 (6-14) Blood Urea Nitrogen 11 mg/dL (7-20) Creatinine 0.8 mg/dL (0.6-1.0) Estimated GFR (Cockcroft-Gault) 93.4 BUN/Creatinine Ratio 14 (6-20) Glucose Level 92 mg/dL (70-99) Calcium Level 8.3 mg/dL (8.5-10.1) Total Bilirubin 0.1 mg/dL (0.2-1.0) Aspartate Amino Transf (AST/SGOT) 26 U/L (15-37) Alanine Aminotransferase (ALT/SGPT) 22 U/L (14-59) Alkaline Phosphatase 66 U/L (46-116) Total Protein 6.9 g/dL (6.4-8.2) Albumin 2.8 g/dL (3.4-5.0) Albumin/Globulin Ratio 0.7 (1.0-1.7) Lipase 663 U/L (73-393) Stool Occult Blood Negative (NEG) Laboratory Tests Test 12/19/18 12:55 12/19/18 13:50 12/19/18 14:13 Urine Collection Type Unknown Urine Color Yellow Urine Clarity Clear Urine pH 5.5 Urine Specific [place] 1.015 Urine Protein Negative mg/dL (NEG-TRACE) Urine Glucose (UA) Negative mg/dL (NEG) Urine Ketones (Stick) Negative mg/dL (NEG) Urine Blood Trace (NEG) Urine Nitrite Negative (NEG) Urine Bilirubin Negative (NEG) Urine Urobilinogen Dipstick 0.2 mg/dL (0.2 mg/dL) Urine Leukocyte Esterase Negative (NEG) Urine RBC 0 /HPF (0-2) Urine WBC Occ /HPF (0-4) Urine Squamous Epithelial Cells Few /LPF Urine Bacteria 0 /HPF (0-FEW) Urine Mucus Slight /LPF White Blood Count 5.2 x10^3/uL (4.0-11.0) Red Blood Count 4.98 x10^6/uL (3.50-5.40) Hemoglobin 13.4 g/dL (12.0-15.5) Hematocrit 42.1 % (36.0-47.0) Mean Corpuscular Volume 85 fL (79-100) Mean Corpuscular Hemoglobin 27 pg (25-35) Mean Corpuscular Hemoglobin Concent 32 g/dL (31-37) Red Cell Distribution Width 15.0 % (11.5-14.5) Platelet Count 246 x10^3/uL (140-400) Neutrophils (%) (Auto) 41 % (31-73) Lymphocytes (%) (Auto) 46 % (24-48) Monocytes (%) (Auto) 13 % (0-9) Eosinophils (%) (Auto) 0 % (0-3) Basophils (%) (Auto) 0 % (0-3) Neutrophils # (Auto) 2.1 x10^3uL (1.8-7.7) Lymphocytes # (Auto) 2.4 x10^3/uL (1.0-4.8) Monocytes # (Auto) 0.7 x10^3/uL (0.0-1.1) Eosinophils # (Auto) 0.0 x10^3/uL (0.0-0.7) Basophils # (Auto) 0.0 x10^3/uL (0.0-0.2) Sodium Level 144 mmol/L (136-145) Potassium Level 3.3 mmol/L (3.5-5.1) Chloride Level 109 mmol/L (98-107) Carbon Dioxide Level 28 mmol/L (21-32) Anion Gap 7 (6-14) Blood Urea Nitrogen 11 mg/dL (7-20) Creatinine 0.8 mg/dL (0.6-1.0) Estimated GFR (Cockcroft-Gault) 93.4 BUN/Creatinine Ratio 14 (6-20) Glucose Level 92 mg/dL (70-99) Calcium Level 8.3 mg/dL (8.5-10.1) Total Bilirubin 0.1 mg/dL (0.2-1.0) Aspartate Amino Transf (AST/SGOT) 26 U/L (15-37) Alanine Aminotransferase (ALT/SGPT) 22 U/L (14-59) Alkaline Phosphatase 66 U/L (46-116) Total Protein 6.9 g/dL (6.4-8.2) Albumin 2.8 g/dL (3.4-5.0) Albumin/Globulin Ratio 0.7 (1.0-1.7) Lipase 663 U/L (73-393) Stool Occult Blood Negative (NEG) VTE Prophylaxis Ordered VTE Prophylaxis Devices: Yes VTE Pharmacological Prophylaxi: Yes Assessment/Plan Assessment/Plan LEFT AMA, NOT ADMITTED HUSEYIN BRYSON MD Dec 19, 2018 14:52
[2018-12-19 15:22] VITALS: BP 164/87
== END 2018-12-19 15:28 | disposition home or self-care (01) ==
LOC: ER 12:18
DX: K85.90 Acute pancreatitis without necrosis or infection, unspecified (principal); R19.7 Diarrhea, unspecified; J45.901 Unspecified asthma with (acute) exacerbation
CPT/HCPCS: 36415; 80053; 81001; 81025; 82274; 83690; 85025; 96361; 96374; 99284; J2405; J7030

== ENCOUNTER → 2020-10-15 | Outpatient (CLI) | payer OTHER ==
[2019-03-23 10:54] VITALS: BP 145/84
[~2020-10-15] MED LIST changes: +ALBU2.5V8 INH; +AMLO-186 PO; +BUDE10.2 IH; +MONT10TA49 PO; -MONT10TA9 PO; +OXYC-325 PO; +SERT50TA PO
--- NOTE | 2020-10-15 14:33 | EKG ---
[facility] [address] [place] [address] Test Date: 2020-10-15 Test Time: 14:28:07 Pat Name: PHYLLIS VIVAR Department: Room: Gender: F [place] Maker: : 1970 Requested By: HUSEYIN RITTER Order Number: [id number] Reading MD: Measurements Intervals [place] Rate: 77 P: 62 IN: 150 QRS: 16 QRSD: 94 T: 28 QT: 380 QTc: 432 Interpretive Statements SINUS RHYTHM NORMAL ECG RI6.02 No previous ECG available for comparison
[2020-10-15 15:00] LABS: BASO % 1 % (0-3); EOS # 0.1 x10^3/uL (0.0-0.7); EOS % 1 % (0-3); HEMATOCRIT 39.9 % (36.0-47.0); LYMPH # 2.6 x10^3/uL (1.0-4.8); LYMPH % 39 % (24-48); MEAN CORPUSCULAR HEMOGLOBIN 27 pg (25-35); MEAN CORPUSCULAR HGB CONC 33 g/dL (31-37); MEAN CORPUSCULAR VOLUME 84 fL (79-100); MONO # 0.6 x10^3/uL (0.0-1.1); MONO % 9 % (0-9); NEUT # 3.3 x10^3/uL (1.8-7.7); NEUT % 50 % (31-73); PLATELET COUNT 285 x10^3/uL (140-400); RED BLOOD COUNT 4.76 x10^6/uL (3.50-5.40); WHITE BLOOD COUNT 6.6 x10^3/uL (4.0-11.0)
[2020-10-15 15:06] LABS: CALCIUM 8.9 mg/dL (8.5-10.1); GFR 71.6; POTASSIUM 3.5 mmol/L (3.5-5.1)
== END ==
LOC: MERGE 14:06 → SURGPAT 14:06
PROVIDERS: ATTEND Surgery
DX: Z01.818 Encounter for other preprocedural examination (principal); K46.0 Unspecified abdominal hernia with obstruction, without gangrene; Z91.018 Allergy to other foods
CPT/HCPCS: 36415; 80048; 85025; 93005

== ENCOUNTER 2020-10-18 06:30 | Day surgery (SDC) | payer OTHER ==
[~2020-10-18] VITALS: Ht 157.5 cm; Wt 115.0 kg
[~2020-10-18 06:30] MED LIST changes: +ACETAMINOPHEN 500 MG TABLET PO PRN; +HYDROmorphone 2 MG/ML VIAL IVP PRN; +IV RINGERS,LACTATED 1000ML 1,000 ML IV SCH; +MORPHINE SULFATE 2 MG/ML VIAL. IVP PRN; -OXYC-325 PO; +PROCHLORPERAZINE 10 MG/2 ML VIAL. IVP PRN; +fentaNYL PF VIAL 100 MCG/2 ML VIAL IVP PRN
[2020-10-18] MEDS ORDERED: MINERAL OIL for SURGERY 10 ML VIAL. MC ONE (06:56)
[2020-10-18] MEDS ORDERED: BUPIVACAINE-EPI 0.25% 30 ML VIAL KIT. ONE (06:56)
--- NOTE | 2020-10-18 07:14 | PDOC1 ---
History and Physical Date of Admission Date of Admission DATE: 10/18/20 TIME: 07:11 Identification/Chief Complaint Chief Complaint Abdominal pain Source Source: Chart review, Patient History of Present Illness History of Present Illness 50-year-old female with a painful bulge in the upper abdomen after her last describes pain especially with activity recent CT scan showed 3 cm supraumbilical ventral hernia with incarcerated fat Past Medical History Cardiovascular: No pertinent hx Pulmonary: Asthma GI: No pertinent hx Heme/Onc: No pertinent hx Hepatobiliary: No pertinent hx Psych: No pertinent hx Rheumatologic: No pertinent hx Infectious disease: No pertinent hx ENT: No pertinent hx Renal/: No pertinent hx Endocrine: No pertinent hx Dermatology: No pertinent hx Past Surgical History Past Surgical History: , Hysterectomy Family History Family History: No Significant Social History Smoke: No ALCOHOL: rare Drugs: None Current Medications Current Medications Current Medications Fentanyl Citrate (Fentanyl 2ml Vial) 25 mcg PRN Q5MIN PRN IVP MILD PAIN 1-3; Start 10/18/20 at 06:00; Stop 10/19/20 at 05:59 Fentanyl Citrate (Fentanyl 2ml Vial) 50 mcg PRN Q5MIN PRN IVP MODERATE PAIN 4- 6; Start 10/18/20 at 06:00; Stop 10/19/20 at 05:59 Morphine Sulfate (Morphine Sulfate) 1 mg PRN Q10MIN PRN IVP SEVERE PAIN 7-10; Start 10/18/20 at 06:00; Stop 10/19/20 at 05:59 Ringer's Solution 1,000 ml @ 30 mls/hr Q24H IV ; Start 10/18/20 at 06:00; Stop 10/18/20 at 17:59 Hydromorphone HCl (Dilaudid) 0.5 mg PRN Q10MIN PRN IVP SEVERE PAIN 7-10, 2nd CHOICE; Start 10/18/20 at 06:00; Stop 10/19/20 at 05:59 Prochlorperazine Edisylate (Compazine) 5 mg PACU PRN PRN IVP NAUSEA, MRX1; Start 10/18/20 at 06:00; Stop 10/19/20 at 05:59 Cefazolin Sodium/ Dextrose 50 ml @ 100 mls/hr 1X PREOP PRN IV PRIOR TO PROCEDURE; Start 10/18/20 at 06:00; Stop 10/18/20 at 18:00 Acetaminophen (Tylenol) 1,000 mg 1X PREOP PRN PO PRIOR TO PROCEDURE; Start 10/18/20 at 06:00 Bupivacaine HCl/ Epinephrine Bitart (Sensorcain-Epi 0.25% Kit) 30 ml STK-MED ONCE .ROUTE ; Start 10/18/20 at 06:56; Stop 10/18/20 at 06:56; Status DC Mineral Oil (Muri-Lube) 10 ml STK-MED ONCE MC ; Start 10/18/20 at 06:56; Stop 10/18/20 at 06:56; Status DC Active Scripts Active Proair Hfa (Albuterol Sulfate) 8.5 Gm Hfa.aer.ad 5 Mg NEB PRN Q4HRS PRN Allergies Allergies: Coded Allergies: No Known Drug Allergies (Unverified , 10/18/20) ROS Gastrointestinal: Yes Abdominal Pain Physical Exam General: Alert, Oriented X3, Cooperative, No acute distress HEENT: Atraumatic, EOMI Lungs: Clear to auscultation, Normal air movement Heart: RRR Abdomen: Normal bowel sounds, Soft, Other (Tender to palpation just above the umbilicus consistent with hernia) Rectal Exam: not examined Extremities: No edema Skin: No significant lesion Neuro: Normal speech Vitals Vitals Vital Signs Date Time Temp Pulse Resp B/P (MAP) Pulse Ox O2 Delivery O2 Flow Rate FiO2 10/18/20 07:09 97.5 87 20 97 97.5 10/18/20 07:04 124/63 Room Air VTE Prophylaxis Ordered VTE Prophylaxis Devices: Yes VTE Pharmacological Prophylaxi: Contraindicated Assessment/Plan Assessment/Plan Abdominal ventral hernia with incarcerated fat plan robotic assisted laparoscopic ventral hernia repair with mesh Justifications for Admission Other Justification HUSEYIN RITTER MD Oct 18, 2020 07:14
[2020-10-18] MEDS ORDERED: fentaNYL PF VIAL 100 MCG/2 ML VIAL ONE ×2 (07:17→09:20)
[2020-10-18] MEDS ORDERED: MIDAZOLAM HCL/PF 2 MG/2 ML VIAL. ONE (07:17)
[2020-10-18] MEDS ORDERED: ROCURONIUM 50 MG/5 ML VIAL. ONE (07:17)
[2020-10-18] MEDS ORDERED: DEXAMETHASONE SOD PHOS 4 MG/ML VIAL ONE (07:17)
[2020-10-18] MEDS ORDERED: SEVOFLURANE 61 TO 120 MINUTES. IH ONE (07:18)
[2020-10-18] MEDS ORDERED: PROPOFOL 10 MG/ML (20ML) VIAL. IV ONE (07:18)
[2020-10-18] MEDS ORDERED: LIDOCAINE 2% PF 5 ML VIAL. ONE (07:18)
[2020-10-18] MEDS ORDERED: ONDANSETRON PF 4 MG/2 ML VIAL. ONE (07:18)
[2020-10-18] MEDS ORDERED: NEOSTIGMINE METHYLSULFATE 5 MG/5 ML SYRINGE. ONE (07:59)
[2020-10-18] MEDS ORDERED: GLYCOPYRROLATE 1 MG/5 ML VIAL. ONE (07:59)
--- NOTE | 2020-10-18 08:32 | PDOC4 ---
Operative Note Operative Note Date: October 182020 at 829 Preoperative diagnosis: Incarcerated incisional hernia Postoperative diagnosis: Same Procedure: Robotic assisted laparoscopic incisional hernia repair with mesh Surgeon: [place] Specimen: None Dictation: Patient is a 50-year-old female who had previously had a laparoscopic hysterectomy developed a incarcerated supraumbilical hernia at the port site. Procedure of robotic assisted laparoscopic incisional hernia repair with mesh was explained to the patient detail risk benefits were also discussed including bleeding infection injury to intra-abdominal contents possible necessitating further open operations alternatives to this procedure also discussed with the patient who seemed to understand and gave both verbal and written consent had procedure performed. Patient was taken to the operating room placed the supine position general anesthesia was initiated once patient was sleeping intubated her abdomen was prepped and draped usual sterile fashion using ChloraPrep. An area in the left upper quadrant was injected with quarter percent Marcaine with epinephrine incision was made 11 blade scalpel and a 5 mm Visiport was placed under direct visualization into the abdomen creating pneumoperitoneum once this was complete 8 mm da Karolyn port was placed in the left midabdomen and an 8 mm da Karolyn port was placed in the left lower abdomen and the 5 mm Visiport was changed out an 8 mm da Karolyn port. At this point the robot was brought and docked all port sites surgeon went to the robotic console using a grasper and Endo Clyde scissors the hernia defect contents were reduced. The hernia was then closed with a running 2 OV lock nonabsorbable suture. Ventral light ST mesh was placed over the hernia defect this was sewn into place with a running 2 OV lock absorbable suture. Once this was complete the robot was undocked from all port sites the pneumoperitoneum was reduced all ports were removed all port sites were closed with 4 subcuticular Monocryl Mastisol Steri-Strips and island dressings were applied. Patient was awakened and extubated in the operating r oom taken to recovery in stable condition all sponge instrument needle counts listed as correct estimated blood loss 10 mL HUSEYIN RITTER MD Oct 18, 2020 08:32
--- NOTE | 2020-10-18 08:34 | DISCH ---
DISCHARGE INSTRUCTIONS Condition on Discharge Condition on Discharge: Stable Activity After Discharge Activity Instructions for Disc: Avoid exertion Other activity instructions: No lifting more than 20 pounds for 2 weeks Diet after Discharge Diet after Discharge: Regular Wound Incision Care Other wound/incision instructi: Hattie shower in 24 hours Contacting the DRKyler after DC Call your doctor for: If your condition worsens Follow-Up Follow up with: Dr. Ritter in 2 weeks HUSEYIN RITTER MD Oct 18, 2020 08:34
[2020-10-18] MEDS ORDERED: OXYC-325 PO (08:38)
[2020-10-18] MEDS ORDERED: KETOROLAC 30 MG/ML VIAL. ONE (09:25)
[2020-10-18] MEDS ORDERED: KETOROLAC 30 MG/ML VIAL. IVP ONE (09:30)
[2020-10-18 10:30] VITALS: BP 133/71
[2020-10-18] MEDS ORDERED: HYDROcodone/APAP 5/325MG 1 TAB TABLET PO ONE (10:30)
== END 2020-10-18 11:20 | disposition home or self-care (01) ==
LOC: SURG 06:30 → MERGE 07:30 → SURG 11:20
PROVIDERS: ATTEND Surgery
DX: K43.0 Incisional hernia with obstruction, without gangrene (principal); I10 Essential (primary) hypertension; K21.9 Gastro-esophageal reflux disease without esophagitis; E66.9 Obesity, unspecified; J45.909 Unspecified asthma, uncomplicated; F32.9 Major depressive disorder, single episode, unspecified; F41.9 Anxiety disorder, unspecified; Z98.51 Tubal ligation status; Z98.890 Other specified postprocedural states; Z79.899 Other long term (current) drug therapy; Z72.89 Other problems related to lifestyle; Z88.6 Allergy status to analgesic agent
CPT/HCPCS: 49655; C1781; J0690; J1100; J1885; J2250; J2405; J2704; J2710; J3010; J3490; S2900

== ENCOUNTER → 2021-11-12 | Outpatient (CLI) | payer OTHER ==
[~2021-11-12] MED LIST changes: -ACETAMINOPHEN 500 MG TABLET PO PRN; -HYDROmorphone 2 MG/ML VIAL IVP PRN; -IV RINGERS,LACTATED 1000ML 1,000 ML IV SCH; -MORPHINE SULFATE 2 MG/ML VIAL. IVP PRN; +OXYC-325 PO; -PROCHLORPERAZINE 10 MG/2 ML VIAL. IVP PRN; -fentaNYL PF VIAL 100 MCG/2 ML VIAL IVP PRN
--- NOTE | 2021-11-12 16:42 | RAD ---
PROCEDURE: MG DIGITAL BILAT DIAGNOSTIC MAMMO WITH LAMIN, US BREAST BILAT HISTORY: The patient is 51 years old and is seen for Reason: Bilateral breast pain / Spl. Instruction s: MEDIAL RT BREAST PAIN, LATERAL LT BREAST PAIN / History: . COMPARISON: None. TECHNIQUE: CC and MLO views of both breasts were obtained. Images were processed by the [employer] computer-aided detection system. Bilateral breast ultrasounds. DENSITY: There are scattered fibroglandular densities. FINDINGS: Right mammogram: No developing mass, suspicious calcifications or architectural distortion. Right ultrasound: Intramammary lymph node within the right breast 12:00 position 6 oh meters from the nipple. No pathologic lymphadenopathy within the right axilla. Left mammogram: No suspicious microcatheter ossifications, mass or architectural distortion. Mild pro minent left axillary lymph nodes with cortical thickening. IMPRESSION: 1. Probably benign findings. 2. Mildly prominent left axillary lymph nodes with cortical thickening. Recommend 6 month follow-up ultrasound. 3. No mammographic or ultrasound evidence of abnormality corresponding with patient's breast pain bi laterally. Recommend further clinical evaluation. Recommend imaging follow-up if interval change and progression of symptoms. Recommend annual screening mammograms per [employer] guidelines. Patient will be due in six months. BI-RADS category 3 Probably benign Our clinic nurse has been instructed to assist with communicating findings and recommendations to the patient's referring physician and in scheduling follow-up. Patient entered into a reminder system for annual screening mammogram. Electronically signed by: Lasha Guzman DO (11/12/2021 4:40 PM) [id number]
== END ==
LOC: MAMMO 11-11 12:30
PROVIDERS: ATTEND Obstetrics & Gynecology
DX: N63.13 Unspecified lump in the right breast, lower outer quadrant (principal)
CPT/HCPCS: 76641; 77066; G0279; 77062